=== PATIENT | female | born 2000 | race Caucasian/White ===

== ENCOUNTER → 2021-02-09 12:54 | Outpatient (BNVA) | payer SELFPAY | PROVIDERS: Family Provider Family Medicine; PCP Family Medicine; Visit Provider Family Medicine | DX: Z20.822 Contact with and (suspected) exposure to COVID-19 (principal) | CPT/HCPCS: 87635 ==

== ENCOUNTER → 2021-09-01 13:18 | Outpatient (BNVA) | payer OTHER, SELFPAY | PROVIDERS: Family Provider Family Medicine; PCP Family Medicine; Visit Provider Family Medicine | DX: Z01.812 Encounter for preprocedural laboratory examination (principal); Z20.822 Contact with and (suspected) exposure to COVID-19 | CPT/HCPCS: 87635 ==

== ENCOUNTER → 2021-10-16 10:00 | Outpatient (BNVA) | payer OTHER, SELFPAY | PROVIDERS: Family Provider Family Medicine; PCP Family Medicine; Visit Provider Nurse Practitioner Family | DX: Z20.822 Contact with and (suspected) exposure to COVID-19 (principal) | CPT/HCPCS: 87635 ==

== ENCOUNTER 2021-10-31 16:08 | Outpatient (CLI) | payer SELFPAY ==
--- NOTE | 2021-10-31 16:13 | XR_ITS ---
WS: [id number] ABDOMEN SERIES ACUTE Supine and upright views of the abdomen with AP or PA chest CLINICAL INFORMATION: DYSURIA COMPARISON: None. FINDINGS: Heart: Normal cardiac silhouette. Lungs: Lungs are clear. No consolidation or pleural fluid. Bowel gas pattern: Moderate constipation involving the right colon and rectosigmoid. Otherwise normal bowel gas pattern. Free air: None. Abnormal calcifications: None. Bones: Normal. XR/XR acute abdomen series [id number] IMPRESSION: 1. Normal chest. 2. Moderate constipation involving the right colon and rectosigmoid. 3. Otherwise normal bowel gas pattern.
== END 2021-10-31 16:09 | disposition home or self-care (01) ==
PROVIDERS: PCP Family Medicine; Visit Provider Clinical Nurse Specialist Adult Health
DX: R30.0 Dysuria (principal); K59.00 Constipation, unspecified
CPT/HCPCS: 74022

== ENCOUNTER → 2022-02-13 14:36 | Outpatient (BNVA) | payer BC, SELFPAY | PROVIDERS: PCP Family Medicine; Visit Provider Nurse Practitioner Women's Health | DX: Z01.419 Encounter for gynecological examination (general) (routine) without abnormal findings (principal) | CPT/HCPCS: 88175 ==

== ENCOUNTER → 2023-09-26 10:36 | Outpatient (BNVA) | payer BC, SELFPAY | PROVIDERS: PCP Family Medicine; Visit Provider Family Medicine | DX: Z00.00 Encounter for general adult medical examination without abnormal findings (principal) | CPT/HCPCS: 80053; 84443; 85025 ==

== ENCOUNTER 2024-04-13 12:06 | Outpatient (CLI) | payer BC, SELFPAY ==
[2024-04-13 13:18] LABS: Blood Urea Nitrogen 10 mg/dL (6-20); Calcium 8.9 mg/dL (8.5-10.5); Carbon Dioxide 25 mmol/L (22-29); Chloride 104 mmol/L (98-107); Glomerular Filtration Rate 123.9 mL/min (90-130); Glucose 91 mg/dL (65-115); Osmolality Calculated 285 mOsm/kg (285-295); Sodium 138 mmol/L (136-145)
[2024-04-13 13:43] LABS: Anion Gap 12.7 (5-19); Potassium 3.7 mmol/L (3.5-5.1)
== END 2024-04-13 12:07 | disposition home or self-care (01) ==
PROVIDERS: PCP Family Medicine; Visit Provider Nurse Practitioner Adult Health
DX: F32.A Depression, unspecified (principal)
CPT/HCPCS: 36415; 80048

== ENCOUNTER → 2024-12-23 13:30 | Outpatient (BNVA) | payer BC, SELFPAY | PROVIDERS: PCP Family Medicine; Visit Provider Family Medicine | DX: Z12.4 Encounter for screening for malignant neoplasm of cervix (principal) | CPT/HCPCS: 88175 ==

== ENCOUNTER 2025-03-05 11:39 | Outpatient (CLI) | payer BC, SELFPAY ==
--- NOTE | 2025-03-05 11:45 | US_ITS ---
WS: [id number] RIGHT UPPER QUADRANT ULTRASOUND HISTORY: ruq pain COMPARISON: None available. Liver: 14.8 cm in length. Normal size liver with coarse echotexture and hepatic steatosis. No mass. Portal Vein: Normal hepatopetal flow with monophasic waveform. Gallbladder: Normally distended gallbladder with numerous stones. No pericholecystic fluid. Gallbladder wall is measuring top normal size. CBD: 0.2 cm Pancreas: Partially obscured. Right kidney: 10.5 cm in length. Normal size and echogenicity. No hydronephrosis or mass. Aorta and IVC: Unremarkable abdominal aorta and IVC. No ascites. US/US abdomen limited [id number] IMPRESSION: 1. Cholelithiasis. Numerous stones in the gallbladder lumen. No evidence for a cute cholecystitis. 2. Normal common bile duct. 3. Mild hepatic steatosis.
== END 2025-03-05 11:40 | disposition home or self-care (01) ==
PROVIDERS: PCP Family Medicine; Visit Provider Family Medicine
DX: R10.11 Right upper quadrant pain (principal); K80.20 Calculus of gallbladder without cholecystitis without obstruction; K76.0 Fatty (change of) liver, not elsewhere classified
CPT/HCPCS: 76705